=== PATIENT | male | born 1975 | race Two or more races ===

== ENCOUNTER 2023-12-29 07:48 | Outpatient (RCR) | payer OTHER, SELFPAY ==
[2023-12-29 08:06] VITALS: BP 111/63
[2023-12-29 08:45] VITALS: BP 115/64
[2023-12-29 08:50] VITALS: BP 124/74
== END 2023-12-30 09:37 | disposition home or self-care (01) ==
LOC: OID 07:48
PROVIDERS: ATTENDING PHYSICIAN Nurse Practitioner Primary Care
DX: D75.1 Secondary polycythemia (principal)
CPT/HCPCS: 99195

== ENCOUNTER 2024-01-26 08:38 | Outpatient (RCR) | payer OTHER, SELFPAY ==
[2024-01-26 08:47] VITALS: BP 106/73
[2024-01-26 09:12] VITALS: BP 104/65
[2024-01-26 09:16] VITALS: BP 119/75
== END 2024-02-18 15:11 | disposition home or self-care (01) ==
LOC: OID 08:38
PROVIDERS: ATTENDING PHYSICIAN Nurse Practitioner Primary Care
DX: D75.0 Familial erythrocytosis (principal); Z79.52 Long term (current) use of systemic steroids
CPT/HCPCS: 99195

== ENCOUNTER 2024-02-23 08:31 | Outpatient (RCR) | payer OTHER, SELFPAY ==
[2024-02-23 08:46] VITALS: BP 112/77
[2024-02-23 09:10] VITALS: BP 109/66
[2024-02-23 09:13] VITALS: BP 107/71
== END 2024-02-24 09:49 | disposition home or self-care (01) ==
LOC: OID 08:31
PROVIDERS: ATTENDING PHYSICIAN Internal Medicine Hematology & Oncology
DX: D75.0 Familial erythrocytosis (principal); Z79.52 Long term (current) use of systemic steroids
CPT/HCPCS: 99195

== ENCOUNTER 2024-03-29 10:02 | Outpatient (RCR) | payer OTHER, SELFPAY ==
[2024-03-29 10:10] VITALS: BP 120/74
[2024-03-29 10:40] VITALS: BP 108/74
[2024-03-29 10:45] VITALS: BP 117/79
== END 2024-04-20 12:45 | disposition home or self-care (01) ==
LOC: OID 10:02
PROVIDERS: ATTENDING PHYSICIAN Internal Medicine Hematology & Oncology
DX: D75.0 Familial erythrocytosis (principal); D75.1 Secondary polycythemia (principal); Z79.52 Long term (current) use of systemic steroids
CPT/HCPCS: 99195

== ENCOUNTER 2024-04-26 09:37 | Outpatient (RCR) | payer OTHER, SELFPAY ==
[2024-04-26 09:50] VITALS: BP 119/79
[2024-04-26 10:14] VITALS: BP 113/75
[2024-04-26 10:15] VITALS: BP 105/63
== END 2024-04-27 08:22 | disposition home or self-care (01) ==
LOC: OID 09:37
PROVIDERS: ATTENDING PHYSICIAN Internal Medicine Hematology & Oncology
DX: D75.1 Secondary polycythemia (principal); D75.0 Familial erythrocytosis; Z79.52 Long term (current) use of systemic steroids
CPT/HCPCS: 99195